=== PATIENT | female | born 1985 | race African-American/Black ===

== ENCOUNTER 2018-05-11 22:09 | Emergency (ER) | payer OTHER ==
[~2018-05-11] VITALS: Ht 170.2 cm; Wt 133.2 kg
[2018-05-11 22:11] VITALS: Ht 170.2 cm; Wt 133.2 kg
[2018-05-11] MEDS ORDERED: LISINOPRIL-HCT1 EAC8 PO (22:13)
[2018-05-11 22:32] LABS: BASOPHILS 0.1 % (0-2); EOSINOPHILS 2.1 % (0-7); HEMATOCRIT 33.6 % (36.0-48.0); HEMOGLOBIN 11.8 g/dL (12-16); IMMATURE GRANULOCYTES 0.1 % (0-5); LYMPHOCYTES 40.6 % (15-50); MCH 28.9 pg (26.0-34.0); MCHC 35.1 g/dL (31.0-37.0); MCV 82.4 fL (80.0-100.0); MEAN PLATELET VOLUME 10.2 fL (7.4-10.4); MONOCYTES 8.2 % (2-11); NEUTROPHILS 48.9 % (40-80); PLATELET COUNT 161 10x3/uL (130-400); RBC 4.08 10x6/uL (4.00-5.40); RDW 13.7 % (11.5-14.5); WBC 6.7 10x3/uL (4.8-10.8)
[2018-05-11 22:45] LABS: ALBUMIN 3.3 g/dL (3.4-5.0); ANION GAP 13.7 mmol/L (8-16); BILIRUBIN - TOTAL 0.88 mg/dL (0.2-1.3); CALCIUM 8.2 mg/dL (8.5-10.1); CARBON DIOXIDE 27.3 mmol/L (21.0-32.0); CREATININE - SERUM 1.2 mg/dL (0.6-1.3); PROTEIN - SERUM 8.6 g/dL (6.4-8.2)
[2018-05-11 23:42] LABS: APPEARANCE CLEAR (CLEAR); BILIRUBIN NEGATIVE (NEGATIVE); COLOR YELLOW (YELLOW); GLUCOSE NEGATIVE (NEGATIVE); KETONE NEGATIVE (NEGATIVE); NITRITE NEGATIVE (NEGATIVE); PROTEIN NEGATIVE (NEGATIVE); UROBILINOGEN NORMAL (NORMAL)
[2018-05-11] MEDS ORDERED: ZITHROMAX500 MG PO (23:56)
[2018-05-12 00:16] VITALS: BP 138/82
== END 2018-05-12 00:17 | disposition home or self-care (01) ==
LOC: D.ER 22:09
PROVIDERS: Family Medicine
DX: R05 Cough (principal); B20 Human immunodeficiency virus [HIV] disease; M79.18 Myalgia, other site